=== PATIENT | female | born 1980 | race Two or more races ===

== ENCOUNTER → 2022-05-11 14:51 | Outpatient (BNVA) | payer OTHER, SELFPAY | PROVIDERS: PCP Nurse Practitioner Family; Referring Provider Nurse Practitioner Family; Visit Provider Student in an Organized Health Care Education/Training Program | DX: M79.7 Fibromyalgia (principal); E66.9 Obesity, unspecified; F41.8 Other specified anxiety disorders; Z68.31 Body mass index [BMI] 31.0-31.9, adult | CPT/HCPCS: 99202 ==

== ENCOUNTER 2025-04-14 13:14 | Outpatient (AMB) | payer OTHER, SELFPAY ==
--- NOTE | 2025-04-14 13:16 | A.OFFVIS_ITS ---
Intake Visit Reasons: 6m migraine Allergies shellfish derived Allergy (Unknown, Verified 04/14/25 13:17) Unknown Sulfa (Sulfonamide Antibiotics) Allergy (Unknown, Verified 04/14/25 13:17) Unknown cats,dogs Allergy (Unknown, Uncoded 04/14/25 13:17) Unknown dust,pollen Allergy (Unknown, Uncoded 04/14/25 13:17) Unknown Medication List - Last Reconciled 04/14/25 by Rose Lara CNP albuterol sulfate 90 mcg/actuation 2 puffs inhalation Q4H PRN atorvastatin 10 mg PO DAILY cholecalciferol (vitamin D3) (Vitamin D3) 25 mcg PO DAILY clonidine HCl 0.1 mg PO BID PRN divalproex 250 mg PO BEDTIME 90 days duloxetine (Cymbalta) 60 mg PO DAILY epinephrine (EpiPen) 0.3 mg IM Q4H PRN famotidine 40 mg PO BID fluticasone propionate 50 mcg/actuation (Allergy Relief (fluticasone)) 1 spray intranasal Q12H hydroxyzine HCl 25 - 50 mg PO BEDTIME PRN ketotifen fumarate 0.025%(0.035%) 1 drp ophthalmic (eye) BID PRN levocetirizine 5 mg PO DAILY PRN montelukast 10 mg PO BEDTIME multivitamin 1 tab PO DAILY prazosin 2 mg PO BEDTIME pregabalin 300 mg PO BID sennosides-docusate sodium 8.6-50 mg (Senna Plus) 1 tab-cap PO BEDTIME PRN sumatriptan succinate mg PO trazodone mg PO HPI Comments Details: 44-year-old woman with complex underlying neuropsychiatric history resulting in generalized body pain related to PTSD and migraine headaches. She was having more migraines. Headaches could be to either side of head, throbbing-type pain, and were associated with photophobia, sonophobia, nausea, and vomiting. Headaches could last up to few days each time and she sometimes had to miss work. She had about 20 headache days a month. She had to lay down in a dark, quiet room. Sumatriptan as needed was not helping, even after repeating the dose. Bending forward, walking fast, or walking up the stairs could make headaches worse. 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 She was under some stress and was working with psychiatrist. Sleep was not so good. [facility] Medical History (Updated 04/14/25 @ 14:41 by Rose Lara CNP) Asthma PTSD (post-traumatic stress disorder) Depression Post concussion syndrome Orthostatic hypotension Fibromyalgia Acquired lordosis Acquired kyphosis Peptic ulcer disease Ovarian cyst Constipation Low back pain Lumbar radiculopathy Lumbar spondylosis Cervical radiculitis Cervical spondylolysis Surgical History H/O breast surgery H/O: hysterectomy Family History (Updated 04/14/25 @ 13:30 by Rose Lara CNP) Mother Thyroid disease Dementia Father Hypertension Hypercholesteremia Other Family history of osteoarthritis Family history of rheumatoid arthritis Social History Household Members Other:: Daughter Alcohol intake: current Alcohol intake frequency: holidays/special occasions only Patient Tobacco Use Status: Never used Tobacco Current occupational status: employed and disabled Current occupation: [employer] Review of Systems Const Denies chills, Denies daytime sleepiness, Reports difficulty sleeping, Denies fatigue, Denies fever(s), Denies frequent falls, Reports headache(s), Denies increased appetite, Denies poor appetite, Denies snoring, Denies weakness, Denies weight gain and Denies weight loss Eyes Denies loss of vision ENT Denies vertigo, Denies dizziness and Reports headache(s) Card Denies chest pain at rest, Denies chest pain with activity, Denies syncope, Denies leg edema and Denies palpitations Resp Denies snoring GI Denies constipation, Denies heartburn, Denies diarrhea and Denies nausea Denies urinary frequency, Denies urinary incontinence and Denies urinary urgency Musc Denies abnormal gait, Denies numbness and Denies tingling Skin/Breast Denies dry skin and Denies rash Neuro Denies abnormal gait, Denies vertigo, Denies dizziness, Denies syncope, Denies frequent falls, Reports headache(s), Denies lack of coordination, Denies loss of vision, Denies memory loss, Denies numbness, Denies restless legs, Denies seizure-like activity, Denies tingling, Denies paresthesias, Denies tremor(s) and Denies weakness Psych Denies anxiety, Denies depression, Denies auditory hallucinations, Denies memory loss, Denies visual hallucinations and Denies suicidal ideation Endo Denies fatigue and Denies palpitations Physical Exam Const Other: General Appearance:? normal, in no acute distress. Skin:? no rashes, no significant birthmarks. Heart:? S1, S2 normal, no murmurs. Lungs:? clear anteriorly and posteriorly. Extremities:? no edema. Psych:? alert, oriented, cognitive function intact, cooperative with exam. Neuro Other: Mental Status:?Normal attention, orientation, memory and affect.? Cranial Nerves:?Pupils are equal, round and reactive to light. External occular muscles are intact. Visual moses are full. Face is symmetrical. Facial sensations are normal. Tongue is midline. Palate elevates symmetrically. Shoulder shrugging is normal. Hearing to bedside conversation is normal. Sensory Exam:?....? Coordination:?No ataxia,?no titubation.? Gait Exam: Within normal limits. Extrapyramidal System:?No tremor, rigidity with normal facial expressions.? Pronator Drift:?Not present.? Involuntary Movements:?No tremors seen.? Speech:?Normal.? Results Reviewed Results Reviewed: CT brain WO at [facility] December 2022: WNL. Assessment & Plan Assessment & Plan (1) Migraine: Code(s): G43.909 - Migraine, unspecified, not intractable, without status migrainosus Category: Medical Qualifiers: Migraine type: unspecified Status migrainosus presence: without status migrainosus Intractability: not intractable Qualified Code(s): G43.909 - Migraine, unspecified, not intractable, without status migrainosus Plan: She has tried and failed multiple prophylactic medications for migraines including topiramate, duloxetine, and Depakote. Beta blockers such as propranolol were contraindicated due to asthma. She was having about 20 headache days/month. Start Emgality Auto-Injector 120mg/mL subcutaneous monthly, use/side effects reviewed. Increase sumatriptan 100mg 1 tablet as needed for migraines. May take with 1 Aleve or Excedrin and cup of tea or coffee. Start ondansetron 4mg 1 tablet as needed for nausea/vomiting. Plan Meds tried: Rizatriptan, sumatriptan, topiramate, Fioricet, divalproex acid, duloxetine. Beta blockers contraindicated due to asthma. Medications: New ondansetron 4 mg PO DAILY PRN 10 tabs 5RF nausea and vomiting 30 days sumatriptan succinate take 1 tab at onset of headache; if no relief, may repeat 1 tab after at least 2 hrs; max = 2 tabs/24 hrs PO 10 tabs 5RF 30 days galcanezumab-gnlm (Emgality Pen) 120 mg subcut QMONTH 1 mL 5RF 30 days galcanezumab-gnlm (Emgality Pen) loading dose 120 mg subcut QMONTH 2 mL 0RF 30 days Coding Level of Care Code Est Pt Level 4 (12739) Diagnoses Migraine without status migrainosus, not intractable, unspecified migraine type G43.909 Migraine type: unspecified Status migrainosus presence: without status migrainosus Intractability: not intractable
--- OUTSIDE RECORDS SUMMARY | 2025-04-14 16:09 | XMS_ITS | Encounter Summary ---
Author Organization [facility] Address [address] [place] [address] Care Team Providers Care Wood Lathe Operator Name Role Phone rCiss Young-Rachid Primary Care Provider [phone] Encounter Details Date Type Department Care Team ([facility] st Contact Info) Description 03/30/2022 Interim Notes Caring [facility] Main [address] [place] [phone] Lily He PA-C [address] [place], [place] [id number] Social History Tobacco Use Types Packs/Day Years Used Date Smoking Tobacco: Never Smokeless Tobacco: Never Alcohol Use Standard Drinks/Week Comments No 0 (1 standard drink = 0.6 oz pur e alcohol) Social Connections Answer Date Recorded Connectedness 0 10/14/2021 Financial Resource Strain Answer Date R ecorded Financial Resource Strain 0 2021 Stress Answer Date Recorded Stress 0 10/14/2021 Physical Activity Answer Date Recorded Physical Activity 0 02/11/2019 Food Insecurity Answer Date Recorded Food 0 10/14/2021 Transportation Needs Answer Date Record ed Transportation 0 10/14/2021 Housing Stability Answer Date Recorded Housing 0 10/14/2021 Safety and Environment Answer Date Christopher rded Safety 1 10/14/2021 Utilities Answer Date Recorded Utilities 0 10/14/2021 Employment Answer Date Recorded Stress 0 09/13/2021 Comments No Sex and Gender Information Value Date Recorded Sex Assigned at Female 07/02/2017 2:11 PM PST Legal Sex Female 11:36 AM PDT Gender Identity Female 07/02/2017 2:11 PM PST Sexual Orientation Straight 07/02/2017 2: 11 PM PST documented as of this encounter Plan of Treatment Not on file documented as of this encounter Visit Diagnoses Not on filedocumented in this encounter Additional Health Concerns Assessment Noted Time PHQ-9 Depression Total Score: 8 10/15/19 22 11:44 AM PDT A Depression follow-up plan has been documented for the patient 10/14/2021 1:31 PM PDT documented as of this encounter Care Teams Wood Lathe Operator Relationship Specialty Start Date End Date Criss Young FNP-C [address] [place] [address] PCP - General Internal Medicine 08/19/22 documented as of this encounter
--- OUTSIDE RECORDS SUMMARY | 2025-04-14 16:09 | XMS_ITS | Clinical Summary ---
Author Organization [facility] Address [address] [place] [address] Phone Care Team Providers Care Distribution A Class Lineman Name Role Phone Criss Young Primary Care Provider [phone] Allergies Active Allergy Reactions Criticality Noted Date Comments Shellfish Derived Anaphylaxis High 02/10/2021 Shrimp Wheezing High 11/22/2017 Medications ALPRAZolam (XANAX) 0.5 mg tablet TAKE ONE TABLET BY MOUTH 2 (two) times a day OR 3 (THREE) TIMES A DAY 07/30/19 21 Active atorvastatin (LIPITOR) 10 mg tablet TAKE ONE TABLET BY MOUTH NIGHTLY AT BEDTIME FOR cholesterol 06/22/20 20 Active cetirizine (ZyrTEC) 10 mg tablet TAKE ONE TABLET BY MOUTH 2 (two) times a day 07/22/19 21 Active cholecalciferol (VITAMIN D-3) 25 mcg (1,000 unit) capsule TAKE ONE CAPSULE BY MOUTH DAILY 08/21/19 21 Active cyanocobalamin (VITAMIN B-12) 1,000 mcg/mL injection INJECT THE CONTENT OF 1 VIAL (1ML) INTO THE MUSCLE EVERY 30 DAYS 08/21/19 21 Active diphenhydrAMINE (BENADRYL) 25 mg capsule TAKE ONE CAPSULE BY MOUTH EVERY 6 HOURS NEEDED 08/28/19 21 Active docusate sodium (COLACE) 100 mg capsule Take 100 mg by mouth 2 times daily. Active DULoxetine (CYMBALTA) [address] capsule TAKE TWO CAPSULES BY MOUTH DAILY AT BEDTIME 08/10/19 21 Active EPINEPHrine (EpiPen 2-Lei) 0.3 mg/0.3 mL injection USE NEEDED FOR anaphylaxis. 07/15/19 21 Active famotidine (PEPCID) 40 mg tablet TAKE ONE TABLET BY MOUTH 2 (two) times a day 11/04/19 23 Active fluticasone propionate (FLONASE) 50 mcg/actuation nasal spray Active ketotifen fumarate (ZADITOR) 0.035 % ophthalmic solution INSTILL 1 DROP INTO AFFECTED EYE(S) 2 (two) times a day NEEDED 04/14/20 20 Active linaCLOtide (Linzess) 290 mcg capsule TAKE ONE CAPSULE BY MOUTH DAILY 12/29/19 22 Active botulinum toxin Type A (Botox) 100 unit recon soln injection 10/15/19 15 Active pantoprazole (PROTONIX) 20 mg EC tablet TAKE ONE TABLET BY MOUTH 2 (two) times a day 08/14/19 21 Active prazosin (MINIPRESS) 1 mg capsule Take 1 capsule by mouth at bedtime with 2mg tablet to equal 3mg 08/10/19 21 Active prazosin (MINIPRESS) 2 mg capsule Take 1 capsule by mouth every night as needed for nightmares 08/10/19 21 Active predniSONE (DELTASONE) 10 mg tablet TAKE ONE TABLET BY MOUTH BEFORE injections AND TAKE ONE TABLET THE following DAY AFTER injection 07/30/19 21 Active pregabalin (LYRICA) 225 mg capsule Take 225 mg by mouth 2 times daily. Active senna-docusate (PERICOLACE) 8.6-50 mg per tablet TAKE ONE TABLET BY MOUTH EVERY NIGHT AT BEDTIME 07/22/19 21 Active simethicone (MYLICON,GAS-X) 180 mg capsule Take 1 Cap by mouth 2 times daily for 30 days. 09/30/19 21 Active tamoxifen (NOLVADEX) 10 mg tablet TAKE ONE TABLET BY MOUTH ONCE A DAY 09/06/19 21 Active tiZANidine (ZANAFLEX) 2 mg capsule Take 2 mg by mouth every 12 hours as needed. Active traZODone (DESYREL) 100 mg tablet Take 100-200 mg by mouth at bedtime. Active pantoprazole (PROTONIX) 40 mg EC tablet Take 1 tablet (40 mg total) by mouth 2 (two) times a day. Take on empty stomach, wait 30 mins and then eat to activate the medication- before breakfast and supper 60 each 11 06/04/20 24 Active docusate sodium (Colace) 100 mg capsule Take 1 capsule (100 mg total) by mouth 2 (two) times a day. 60 each 06/04/20 24 Active bisacodyL (DULCOLAX) 10 mg suppository Insert 1 suppository (10 mg total) into the rectum 1 (one) time each day. Use as directed 30 suppository 06/04/20 Active senna-docusate (PERICOLACE) 8.6-50 mg per tablet Take 1 tablet by mouth 2 (two) times a day. 60 each 06/04/20 24 Active linaCLOtide (Linzess) 290 mcg capsuleIndicatio ns:Constipation, unspecified constipation type,Abdominal discomfort,Famil y history of colon cancer,Gastroeso phageal reflux disease without esophagitis Take 1 capsule (290 mcg total) by mouth 1 (one) time each day. 30 capsule 06/04/20 Active lactulose (CHRONULAC) solution Take 15 mL (10 g total) by mouth 2 (two) times a day. 900 mL 06/04/20 Active simethicone (Mylanta Gas) 125 mg chewable tablet Chew 1 tablet (125 mg total) every 6 (six) hours if needed for flatulence. 30 tablet 06/04/20 Active Active Problems Problem Noted Date Diagnosed Date Breast cancer ([facility] V24, [facility] V28) 024 Overview (05/13/2024): bilateral masectomy Depression 05/13/2024 Fibromyalgia 05/13/2024 Insomnia 05/13/2024 Complex ovarian cyst 07/03/2018 Vasovagal syncope 03/19/2018 Episode of recurrent major d epressive disorder ([facility] V24) 11/22/2017 Generalized anxiety disorder 11/22/2017 GERD (gastroesophageal reflux disease) 8 Seasonal allergies 11/22/2017 Immunizations Immunization Administration Dates Next Due [employer] SARS-CoV-2 COVID-19, mRNA, LNP-S, preservative free 08/27/2020,08/06/2020 Surgical History Surgery Date Site/Laterality Comments HYSTERECTOMY PROCEDURE: HISTORICAL HYSTERECTOMY BREAST BIOPSY Bilateral PROCEDURE: VA BIOPSY BREAST OPEN INCISIONAL UPPER GASTROINTESTINAL ENDOSCOPY 09/01/2020 PROCEDURE: VA UPPER GI ENDOSCOPY PERFORMED; COMMENT: Visually normal, esophageal biopsies: normal. COLONOSCOPY 09/01/2020 PROCEDURE: HISTORICAL COLONOSCOPY; COMMENT: Minimal sigmoid colon diverticulosis; no polyps. Medical History Medical History Date Comments Breast cancer (CMS/HCC V24, CMS/HCC V28) DX:Breast cancer (HCC); COMMENT: bilateral masectomy Insomnia DX:Insomnia Depression DX:Depression Fibromyalgia DX:Fibromyalgia Family History Medical History Relation Name Comments Hypertension Father 70 Breast cancer Maternal Grandmother mets t o the colon and stomach Diabetes Maternal Grandmother of cancer Breast cancer Mother Hypertension Mother 63 Stroke Mother's side maternal aunt two weeks ago Breast cancer Sister Hypertension Sister 48 Ovarian cancer Sister Relation Name Status Comments Father Alive Maternal Grandmother Mother Alive Mother's side Alive Sister Alive Social History Tobacco Use Types Packs/Day Years Used Date Smoking Tobacco: Former Cigarettes Q uit: 06/26/1997 Smokeless Tobacco: Never Alcohol Use Standard Drinks/Week Comments No 0 (1 standard drink = 0.6 oz pur e alcohol) Comments Unknown Sex and Gender Information Value Date Recorded Sex Assigned at Not on file Legal Sex Female 6:13 PM EST Gender Identity Not on file Sexual Orientation Not on file Obstetrics History Last Filed Vital Signs Vital Sign Reading Time Taken Comments Blood Pressure 100/64 06/04/2024 3:06 PM EST Pulse 82 06/04/2024 3:06 PM EST Temperature - - Respiratory Rate - - Oxygen Saturation - - Inhaled Oxygen Concentration - - Weight 97.2 kg (214 lb 3.2 oz) 06/04/2024 3:06 P M EST Height 172.7 cm (5' 8 ) 06/04/2024 3:06 PM EST Body Mass Index 32.57 06/04/2024 3:06 PM EST Plan of Treatment Health Maintenance Due Date Last Done Comments Breast Cancer Screening 1981 Cervical Cancer Screening: Pap Smear 2002 HPV Vaccines (1 - Risk 3-dose SCDM series) 2008 Pneumococcal Vaccine: Pediatrics (0 to 5 Years) and At-Risk Patients (6 to 49 Years) (2 of 2 - PCV) 03/26/2018 03/26/2017 Social Influencers of Health Screening 05/28/2022 Hepatitis B Vaccines (2 of 2 - CpG 2-dose series) 06/06/2024 05/09/2024 Depression Screening 06/26/2024 COVID-19 Vaccine ( season) 2025 08/19/2022, 11/08/2020, 10/17/2020, Additional history exists Influenza Vaccine (#1) 2025 , 03/30/2020, 03/22/2019, Additional history exists DTaP,Tdap,and Td Vaccines (2 - Td or Tdap) 04/11/2026 04/11/2016 Cholesterol Screening (Lipid Panel) 08/19/2027 08/19/2022, 08/19/2022, 08/19/2022, Additional history exists RSV Immunization Adult Patients (1 - 1-dose 75+ series) 2056 HIV Screening Completed 08/19/2022 Hepatitis C Screening Completed 10/11/2023 , 06/07/2021, 07/07/2020 HIB Vaccines Aged Out No longer eligi ble based on patient's age to complete this topic Hepatitis A Vaccines Aged Out No long er eligible based on patient's age to complete this topic IPV Vaccines Aged Out No longer eligi ble based on patient's age to complete this topic MMR Vaccines Aged Out No longer eligi ble based on patient's age to complete this topic Meningococcal ACWY Vaccine Aged Out N o longer eligible based on patient's age to complete this topic Meningococcal B Vaccine Aged Out No l onger eligible based on patient's age to complete this topic RSV Immunization Patients Under 20 months Aged Out No longer eligible based on patient's age to complete this topic Varicella Vaccines Aged Out No longer eligible based on patient's age to complete this topic Procedures Procedure Name Priority Date/Time Associated Diagnosis Comments HIV SCREENING Routine 08/19/2022 LIPID PANEL Routine 08/19/2022 HEPATITIS C SCREENING Routine 06/07/2021 from Last 3 Months or Most Recently Relevant to Health Maintenance Results * HIV Screening (08/19/2022) HIV Screening Abstracted us Historical Provider MD HEALTH MAINTENANCE Final Result * Lipid panel (08/19/2022) LDL/HDL Ratio 0 Comment:No Interpretation Triglycerides 0 mg/dL Comment:No Interpretation Cholesterol 0 mg/dL Comment:No Interpretation HDL 0 mg/dL Comment:No Interpretation LDL Cholesterol 0 mg/dL Comment:No Interpretation Blood Venous blood specimen / Unknown Historical Provider LAB BLOOD ORDERABLES Merly l Result * Hepatitis C Screening (06/07/2021) Hepatitis C Screening Abstracted Historical Provider HEALTH MAINTENANCE Final Result from Last 3 Months or Most Recently Relevant to Health Maintenance Insurance [facility] Member Subscriber Plan / Payer (Ef fective 2018-Present) Name:Berkley Verdugo Relation to Subscriber:Self Name:Berkley Vedrugo Payer ID:[id number] Group ID:[id number] Type:Not on file Address: [place] [address] [address] [address] Care Teams Distribution A Class Lineman Relationship Specialty Start Date End Date Criss Young FNP [address] [place] [address] PCP - General 02/13/23
--- OUTSIDE RECORDS SUMMARY | 2025-04-14 16:10 | XMS_ITS | Patient Health Record ---
Author Organization [facility] Address [address] [place] [address] Support Name Relationship Address Phone Otoniel Soliz Emergency Contact [address] [place], [place] [id number] YANA YANEZ Guarantor Unknown [phone] Allergies Allergen (clinical drug ingredient) Drug/Non Drug Allergy documented on EMR Reaction Allergy Type Onset Date Status Shellfish (FN) SHELLFISH (uncoded) Unknown Allergy Active Reason For Referral No Information Medications Medication SIG (Take, Route, Frequency, Duration) Notes Start Date End Date Status hydrOXYzine HCl 25 MG Tablet 1 tablet as needed Orally every 6 hrs PRN; Duration: 30 day(s) 09/16/2018 Active Social History Social History Additional Details Category Social Info Options Details Migrated Social History Migrated Social History Tobacco Use:(Tobacco Use/Smoking): Are you a: nonsmoker ; Plan Of Treatment No Information Medications Administered Medication Instructions Date of Administration Dosage Notes Diphenhydramine 09/16/2018 50 mg Medical (General) History Medical History History ICD Code DEPRESSION ANEMIA CHRONIC PAIN CHRONIC MIGRANES FIBROMYLGIA
--- OUTSIDE RECORDS SUMMARY | 2025-04-14 16:10 | XMS_ITS ---
Author Name [facility] Organization Unknown History of Medication Use Medication Directions Dispensed Refills Start Date End Date Stat us predniSONE 20 mg oral tablet 40 mg = 2 tab, Oral, qDay, X 4 day(s), # 8 tab, 0 Refill(s), Prescription Routing: Route to Pharmacy Electronically, Pharmacy: [facility]/pharmacy #[id number], 173, 10/19/24 17:49:00 EDT, Height, cm, 89, 10/19/24 17:49:00 EDT, Dosing Weight, kg 10/19/2024 Allergies Allergen Reaction Severity Comment Documented Date Source Statu s SHELLFISH ALLERGIC RXN [facility] Active Encounters Encounter Type Encounter Reason Primary Diagnosis Location Date Emergency allergic reaction [facility] 10/19/2024 Care Team Organization Name Specialty Phone Email Start Date End Da [facility] PCP Patient_Can't_Isis r Primary Care 10/19/2024
--- OUTSIDE RECORDS SUMMARY | 2025-04-14 16:10 | XMS_ITS | Encounter Summary ---
Author Organization [facility] Address [address] [place] [address] Care Team Providers Care Fundraising Sale Representative Name Role Phone Criss Young Primary Care Provider [phone] Reason for Visit * Reason Comments Correspondence faxed medication lis t to homecare agency on 05/31 Encounter Details Date Type Department Care Team (Late st Contact Info) Description 05/31/2016 Interim Notes [facility] [address] [place] [address] Darlene Craft [phone] [place] [address] Social History Tobacco Use Types Packs/Day Years Used Date Smoking Tobacco: Never Smokeless Tobacco: Never Alcohol Use Standard Drinks/Week Comments No 0 (1 standard drink = 0.6 oz pur e alcohol) Comments No Sex and Gender Information Value [...] Assessment Noted Time PHQ-9 Depression Total Score: 24 04/18/ 016 10:00 AM PDT documented as of this encounter Care Teams Fundraising Sale Representative Relationship Specialty Start Date End Date Criss Young FNP-C [address] [place] [id number] PCP - General Internal Medicine 08/19/22 documented as of this encounter
--- OUTSIDE RECORDS SUMMARY | 2025-04-14 16:10 | XMS_ITS | Clinical Summary ---
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 08/19/2022 1 0:21 AM EST 08/19/2022 10:22 AM EST 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
--- OUTSIDE RECORDS SUMMARY | 2025-04-14 16:10 | XMS_ITS | Patient Health Record ---
Author Organization [facility] Address [address] [place] [phone] Support Name Relationship Address Phone Otoniel Soliz Emergency Contact [address] [facility] [address] [facility] [address] [place] [address] YANA YANEZ Guarantor Unknown [phone] Allergies Allergen (clinical drug ingredient) Drug/Non Drug Allergy documented on EMR Reaction Allergy Type Onset Date Status Shellfish (FN) SHELLFISH (uncoded) Unknown Allergy Active Reason For Referral No Information Medications Medication SIG (Take, Route, Frequency, Duration) Notes Start Date End Date Status hydrOXYzine HCl 25 MG Tablet 1 tablet as needed Orally every 6 hrs PRN; Duration: 30 day(s) 09/16/2018 Active Social History Tobacco Use: Social History Observation Description Date Details (start date - stop date) Never Smoker NA - NA Social History Tobacco Use: Social Info Question Answer Notes Tobacco Use/Smoking Are you a nonsmoker Plan Of Treatment No Information Medications Administered Medication Instructions Date of Administration Dosage Notes DIPHENHYDRAMINE 09/16/2018 50 mg Medical (General) History Medical History History ICD Code DEPRESSION ANEMIA CHRONIC PAIN CHRONIC MIGRANES FIBROMYLGIA
== END 2025-04-14 13:44 | disposition home or self-care (01) ==
LOC: HO.HSM 13:15
PROVIDERS: PCP Nurse Practitioner Family; Visit Provider Registered Nurse
DX: G43.909 Migraine, unspecified, not intractable, without status migrainosus (principal)
CPT/HCPCS: 99214

== ENCOUNTER 2025-06-13 11:34 | Outpatient (AMB) | payer OTHER, SELFPAY ==
--- NOTE | 2025-06-13 11:42 | A.OFFVIS_ITS ---
Intake Visit Reasons: 6-8 week follow up [facility] Allergies shellfish derived Allergy (Unknown, Verified 06/13/25 11:43) Unknown Sulfa (Sulfonamide Antibiotics) Allergy (Unknown, Verified 06/13/25 11:43) Unknown cats,dogs Allergy (Unknown, Uncoded 06/13/25 11:43) Unknown dust,pollen Allergy (Unknown, Uncoded 06/13/25 11:43) Unknown HPI Comments Details: 45-year-old woman with complex underlying neuropsychiatric history resulting in generalized body pain related to PTSD and migraine headaches. She was not able to get Emgality from the pharmacy and therefore has not been able to start medication. She was still having about 20 headache days a month. She started to have more migraines in fall 2024. Headaches could be to either side of head, throbbing-type pain, and were associated with photophobia, sonophobia, nausea, and vomiting. Headaches could last up to few days each time and she sometimes had to miss work. She had to lay down in a dark, quiet room. 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 She was under some stress and was working with psychiatrist. Sleep was not so good. [facility] Medical History (Updated 04/14/25 @ 14:41 by Rose Lara CNP) Asthma PTSD (post-traumatic stress disorder) Depression Post concussion syndrome Orthostatic hypotension Fibromyalgia Acquired lordosis Acquired kyphosis Peptic ulcer disease Ovarian cyst Constipation Low back pain Lumbar radiculopathy Lumbar spondylosis Cervical radiculitis Cervical spondylolysis Surgical History H/O breast surgery H/O: hysterectomy Family History (Updated 04/14/25 @ 13:30 by Rose Lara CNP) Mother Thyroid disease Dementia Father Hypertension Hypercholesteremia Other Family history of osteoarthritis Family history of rheumatoid arthritis Social History Household Members Other:: Daughter Alcohol intake: current Alcohol intake frequency: holidays/special occasions only Patient Tobacco Use Status: Never used Tobacco Current occupational status: employed and disabled Current occupation: [employer] Review of Systems Const Denies chills, Denies daytime sleepiness, Reports difficulty sleeping, Denies fatigue, Denies fever(s), Denies frequent falls, Reports headache(s), Denies increased appetite, Denies poor appetite, Denies snoring, Denies weakness, Denies weight gain and Denies weight loss Eyes Denies loss of vision ENT Denies vertigo, Denies dizziness and Reports headache(s) Card Denies chest pain at rest, Denies chest pain with activity, Denies syncope, Denies leg edema and Denies palpitations Resp Denies snoring GI Denies constipation, Denies heartburn, Denies diarrhea and Denies nausea Denies urinary frequency, Denies urinary incontinence and Denies urinary urgency Musc Denies abnormal gait, Denies numbness and Denies tingling Skin/Breast Denies dry skin and Denies rash Neuro Denies abnormal gait, Denies vertigo, Denies dizziness, Denies syncope, Denies frequent falls, Reports headache(s), Denies lack of coordination, Denies loss of vision, Denies memory loss, Denies numbness, Denies restless legs, Denies seizure-like activity, Denies tingling, Denies paresthesias, Denies tremor(s) and Denies weakness Psych Denies anxiety, Denies depression, Denies auditory hallucinations, Denies memory loss, Denies visual hallucinations and Denies suicidal ideation Endo Denies fatigue and Denies palpitations Physical Exam Const Other: General Appearance:? normal, in no acute distress. Skin:? no rashes, no significant birthmarks. Heart:? S1, S2 normal, no murmurs. Lungs:? clear anteriorly and posteriorly. Extremities:? no edema. Psych:? alert, oriented, cognitive function intact, cooperative with exam. Neuro Other: Mental Status:?Normal attention, orientation, memory and affect.? Cranial Nerves:?Pupils are equal, round and reactive to light. External occular muscles are intact. Visual moses are full. Face is symmetrical. Facial sensations are normal. Tongue is midline. Palate elevates symmetrically. Shoulder shrugging is normal. Hearing to bedside conversation is normal. Sensory Exam:?....? Coordination:?No ataxia,?no titubation.? Gait Exam: Within normal limits. Extrapyramidal System:?No tremor, rigidity with normal facial expressions.? Pronator Drift:?Not present.? Involuntary Movements:?No tremors seen.? Speech:?Normal.? Results Reviewed Results Reviewed: CT brain WO at [facility] in December 2022: WNL. Assessment & Plan Assessment & Plan (1) Migraine: Code(s): G43.909 - Migraine, unspecified, not intractable, without status migrainosus Category: Medical Qualifiers: Migraine type: unspecified Status migrainosus presence: without status migrainosus Intractability: not intractable Qualified Code(s): G43.909 - Migraine, unspecified, not intractable, without status migrainosus Plan: She has tried and failed multiple prophylactic medications for migraines including topiramate, duloxetine, and Depakote. Beta blockers such as propranolol were contraindicated due to asthma. She was having about 20 headache days/month. She was not able to start Emgality, and medication was stopped. Start Ajovy 225mg/1.5mL subcutaneous monthly. Continue sumatriptan 100mg 1 tablet as needed for migraines. May take with 1 Aleve or Excedrin and cup of tea or coffee. Continue ondansetron 4mg 1 tablet as needed for nausea/vomiting #10 for 30 days. Follow up in 2-3 months or sooner as needed. Sample given to patient in office today Medication: Ajovy Quantity: 1 Lot #: [id number] Exp: Instructions: She was educated on the purpose/use, side effects, and proper administration of this medication. She was advised to read drug information insert in packaging for full instructions and additional information. Plan Meds tried: Rizatriptan, sumatriptan, topiramate, Fioricet, divalproex acid, duloxetine. Beta blockers contraindicated due to asthma. Medications: New fremanezumab-vfrm (Ajovy) 225 mg (1.5 mL) subcut QMONTH 1 ea 5RF 30 days Refilled sumatriptan succinate take 1 tab at onset of headache; if no relief, may repeat 1 tab after at least 2 hrs; max = 2 tabs/24 hrs PO 10 tabs 5RF 30 days ondansetron 4 mg PO DAILY PRN 10 tabs 5RF nausea and vomiting 30 days Discontinued galcanezumab-gnlm (Emgality Pen) Discontinued Reason: Doctor's Order 120 mg subcut QMONTH 30 days 1 mL 5RF galcanezumab-gnlm (Emgality Pen) loading dose Discontinued Reason: Doctor's Order 120 mg subcut QMONTH 30 days 2 mL 0RF Coding Level of Care Code Est Pt Level 4 (02137) Diagnoses Migraine without status migrainosus, not intractable, unspecified migraine type G43.909 Migraine type: unspecified Status migrainosus presence: without status migrainosus Intractability: not intractable
--- OUTSIDE RECORDS SUMMARY | 2025-06-13 13:42 | XMS_ITS | Patient Health Record ---
Author Organization [facility] Address [address] [place] [phone] Support Name Relationship Address Phone Otoniel Soliz Emergency Contact [address] [facility] [facility] [place] [address] YANA YANEZ Guarantor Unknown [phone] Allergies Allergen (clinical drug ingredient) Drug/Non Drug [...]
--- OUTSIDE RECORDS SUMMARY | 2025-06-13 13:42 | XMS_ITS | Patient Health Record ---
Author Organization [facility] Address [address] [place] [address] Support Name Relationship Address Phone Otoniel Soliz Emergency Contact [address] [facility] [address] [place], [place] [id number] YANA YANEZ Guarantor Unknown [phone] Allergies Allergen (clinical drug ingredient) Drug/Non Drug [...]
== END 2025-06-13 12:04 | disposition home or self-care (01) ==
LOC: HO.HSM 11:34
PROVIDERS: PCP Nurse Practitioner Family; Visit Provider Registered Nurse
DX: G43.909 Migraine, unspecified, not intractable, without status migrainosus (principal)
CPT/HCPCS: 99214